=== PATIENT | female | born 1980 | race Caucasian/White ===

== ENCOUNTER 2022-02-23 20:50 | Emergency (ER) | payer SELFPAY ==
[~2022-02-23] VITALS: Ht 167.6 cm; Wt 72.6 kg
[2022-02-23 20:59] VITALS: BP 113/68
--- NOTE | 2022-02-23 21:04 | NUR ---
MED AT BEDSIDE
--- NOTE | 2022-02-23 21:05 | NUR ---
TO ER BED 11. BIBSELWillis SIMS C/O ALLERGIC REACTION AFTER EATING CASHEWS, PT STATES SHE FEELS LIKE "THROAT IS CLOSING". PT DENIES CHEST PAIN. CONNECTED TO MONITOR. NOT IN RESPIRATORY DISTRESS. AWAITING MD DALEY
[2022-02-23] MEDS ORDERED: EPIN0.3P3 IM (21:19)
[2022-02-23] MEDS ORDERED: FAMO-131 PO (21:19)
[2022-02-23] MEDS ORDERED: PRED20TA PO (21:19)
[2022-02-23] MEDS ORDERED: ONDA4TAB5 PO (21:19)
[2022-02-23] MEDS ORDERED: methylPREDNISolone SOD SUCC 125 MG/2ML VIAL ONE (21:20)
[2022-02-23] MEDS ORDERED: methylPREDNISolone SOD SUCC 125 MG/2ML VIAL IM ONE ×2 (21:30)
[2022-02-23] MEDS ORDERED: methylPREDNISolone SOD SUCC 125 MG/2ML VIAL IV ONE (21:30)
--- NOTE | 2022-02-23 21:34 | NUR ---
Patient discharged to home in stable condition. Written and verbal after care instructions given. Patient verbalizes understanding of instruction.
== END 2022-02-23 21:35 | disposition home or self-care (01) ==
LOC: ER 20:57
DX: T78.1XXA Other adverse food reactions, not elsewhere classified, initial encounter (principal); Z79.899 Other long term (current) drug therapy; X58.XXXA Exposure to other specified factors, initial encounter
CPT/HCPCS: 96372; 99283; J2930